=== PATIENT | male | born 2000 | race Caucasian/White ===

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

== ENCOUNTER 2021-12-29 16:30 | Emergency (ER) | payer OTHER ==
[~2021-12-29] VITALS: Ht 177.8 cm; Wt 77.1 kg
[~2021-12-29 16:30] MED LIST changes: +ACET325 PO; +COLCHICINE0.6 MG PO; +DOCU100 PO; +ONDA4ODT MM; +PROC5 PO; +Prednisone10 MG PO; +ROXICODONE5 MG PO
== END 2021-12-29 19:17 | disposition home or self-care (01) ==
LOC: ER 16:30
DX: K21.00 Gastro-esophageal reflux disease with esophagitis, without bleeding (principal); Z88.0 Allergy status to penicillin; Z88.1 Allergy status to other antibiotic agents; Z88.5 Allergy status to narcotic agent; Z79.899 Other long term (current) drug therapy
CPT/HCPCS: 71046; 93005; 93010; 99284-25; A9270

== ENCOUNTER → 2024-09-22 | Outpatient (CLI) | payer OTHER ==
[2024-09-24 17:54] LABS: HEPATITIS B SURFACE ANTIGEN Negative (Negative)
[2024-09-24 18:20] LABS: HIV 1,2 COMBO ANTIGEN/ANTIBODY Negative (Negative)
[2024-09-24 18:41] LABS: HEPATITIS C AB CIA INTERP Negative (Negative); HEPATITIS C ANTIBODY CIA INDEX 0.16 IV
[2024-09-24 22:42] LABS: APTIMA MEDIA TYPE Urine; C. TRACHOMATIS BY TMA Negative (Negative); N. GONORRHOEAE BY TMA Negative (Negative); SPECIMEN SOURCE Urine; T. VAGINALIS BY TMA Negative (Negative)
== END ==
LOC: LAB 15:32 → LAB SHORT 15:32
PROVIDERS: Registered Nurse Community Health
DX: R30.0 Dysuria (principal); Z11.3 Encounter for screening for infections with a predominantly sexual mode of transmission; Z20.2 Contact with and (suspected) exposure to infections with a predominantly sexual mode of transmission
CPT/HCPCS: 86592; 86803; 87086; 87340; 87389; 87491; 87591; 87661